=== PATIENT | female | born 1965 | race Caucasian/White ===

== ENCOUNTER 2019-01-14 10:02 | Inpatient (IN) | payer BC ==
[~2019-01-14] VITALS: Ht 157.4 cm; Wt 65.4 kg
[2019-01-14 10:05] VITALS: BP 172/68
[2019-01-14 10:34] LABS: BASO # 0.1 10*3/uL (0.0-0.1); BASO % 0.5 % (0.0-1.0); EOS # 0.1 10*3/uL (0.0-0.4); EOS % 1.1 % (1.0-4.0); HEMATOCRIT 42.1 % (37.0-47.0); HEMOGLOBIN 13.3 g/dl (12.0-16.0); LYMPH # 3.4 10*3/uL (1.3-4.4); MEAN CELL VOLUME 99.5 fl (81.0-99.0); MEAN CORPUSCULAR HGB 31.4 pg (27.0-31.0); MEAN CORPUSCULAR HGB CONC 31.6 g/dl (33.0-37.0); MEAN PLATELET VOLUME 9.8 fl (9.6-12.3); MONO # 1.2 10*3/uL (0.1-1.0); MONO % 9.4 % (3.0-9.0); NEUT # 7.3 10*3/uL (2.3-7.9); NEUT % 60.2 % (47.0-73.0); PLATELET COUNT AUTOMATED 225 10*3/uL (130-400); RED BLOOD COUNT 4.23 10*6/uL (4.10-5.10); RED CELL DISTRI WIDTH 13.5 % (0-14.5); WHITE BLOOD COUNT 12.2 10*3/uL (4.8-10.8)
[2019-01-14 10:48] LABS: ALBUMIN 3.8 gm/dl (3.1-4.5); ALKALINE PHOSPHATASE 71 U/L (45-117); BUN 17 mg/dl (7-24); CHLORIDE 107 mmol/L (98-107); CREATININE 0.79 mg/dL (0.55-1.02); LIPASE 213 U/L (73-393); POTASSIUM 4.3 mmol/L (3.5-5.1); SGOT/AST 18 IU/L (3-35); SGPT/ALT 28 U/L (12-78); SODIUM 140 mmol/L (136-145); TOTAL PROTEIN 7.9 gm/dL (6.4-8.2)
[2019-01-14 10:49] LABS: TROPONIN I < 0.015 ng/ml (<0.045)
[2019-01-14 11:00] VITALS: BP 163/80
[2019-01-14 11:26] LABS: ACT PARTIAL THROMBO TIME 25.4 SECONDS (20.0-32.1); INTERNATIONAL NORM RATIO 0.9 (2.0-3.5)
[2019-01-14 11:43] VITALS: BP 130/82
[2019-01-14 11:45] VITALS: BP 116/66
--- NOTE | 2019-01-14 11:53 | NUR ---
Time: 1144 A 53 year old FEMALE admitted to 5E under services of SUSAN AMADO DO, Pt. arrived via bed from ER. Chief complaint: COPD EXACERBATION. TOO GAYLE
--- NOTE | 2019-01-14 12:17 | NUR ---
INFORMED DR. BULL PATIENT WAS ON THE FLOOR AND ADMISSION WAS IN.
--- NOTE | 2019-01-14 14:38 | NUR ---
SPOKE WITH DR MORENO AND INFORMED HIM OF NEW CONSULT. STATED TO COLLECT SPUTUM CULTURE AND THEN GIVE THE PATIENT ANOTHER COLLECTION CUP TO MEASURE THE AMOUNT OF HEMOPTYSIS. AND TO CALL DR BULL TO ORDER A CTA
[2019-01-14 16:00] VITALS: BP 119/76
--- NOTE | 2019-01-14 16:56 | NUR ---
PT TO CT VIA WHEELCHAIR
--- NOTE | 2019-01-14 17:11 | NUR ---
PT BACK FROM CT. VOICES NO CONCERNS AT THIS TIME. RESTING IN BED. CALL LIGHT WITHIN REACH
--- NOTE | 2019-01-14 19:51 | NUR ---
24 HR chart check completed.
[2019-01-14 20:00] VITALS: BP 125/59
--- NOTE | 2019-01-14 20:30 | NUR ---
SITTING WITH HOB ELEVATED. RESPIRATIONS EASY. LUNGS DIMINISHED WITH POOR AIR MOVEMENT. PULSE OX 94% 2L. CUP PRESENT AT BEDSIDE WITH BLOODY SPUTUM. CALL LIGHT WITHIN REACH. NO VOICED COMPLAINTS
--- NOTE | 2019-01-14 22:45 | NUR ---
DR ZAMORA PRESENT ON FLOOR. INFORMED OF PATIENT'S C/O DIFFICULTY BREATHING.
[2019-01-14 23:10] LABS: ABG BASE EXCESS 0.3 mmol/L (-2.0-2.0); ABG HCO3 26.3 mmol/l (22-26); ABG O2 SATURATION 93.4 % (95-97); ARTERIAL BLOOD GAS PCO2 49.6 mmHg (35-45); ARTERIAL BLOOD GAS PH 7.341 (7.35-7.45); ARTERIAL BLOOD GAS PO2 71.8 mmHg (80-90)
[2019-01-15] VITALS: BP 120/78
--- NOTE | 2019-01-15 | NUR ---
SLEEPING. NO ACUTE DISTRESS NOTED. RESPIRATIONS EASY. PULSE OX 95% 3L. CALL LIGHT WITHIN REACH.
--- NOTE | 2019-01-15 00:25 | NUR ---
DR ZAMORA PRESENT ON FLOOR. ABG'S REVIEWED. ORDERS RECEIVED TO INCREASE O2 TO 4L
--- NOTE | 2019-01-15 01:00 | NUR ---
SLEEPING. NO ACUTE DISTRESS NOTED. RESPIRATIONS EASY. O2 IN USE AT 4L. CALL LIGHT WITHIN REACH
--- NOTE | 2019-01-15 06:00 | NUR ---
SLEPT THROUGHOUT NIGHT WITH NO ACUTE DISTRESS NOTED. RESPIRATIONS EASY. O2 IN USE. CUP PRESENT AT BEDSIDE WITH SPUTUM SPECIMEN PER DR MORENO REQUEST. CALL LIGHT WITHIN REACH. NO VOICED COMPLAINTS THIS SHIFT
[2019-01-15 06:36] LABS: BASO % 0.1 % (0.0-1.0); HEMATOCRIT 39.8 % (37.0-47.0); HEMOGLOBIN 12.7 g/dl (12.0-16.0); LYMPH # 1.4 10*3/uL (1.3-4.4); LYMPH % 11.7 % (27.0-41.0); MEAN CELL VOLUME 98.8 fl (81.0-99.0); MEAN CORPUSCULAR HGB 31.5 pg (27.0-31.0); MEAN CORPUSCULAR HGB CONC 31.9 g/dl (33.0-37.0); MEAN PLATELET VOLUME 10.5 fl (9.6-12.3); MONO # 0.4 10*3/uL (0.1-1.0); MONO % 3.4 % (3.0-9.0); NEUT % 83.8 % (47.0-73.0); PLATELET COUNT AUTOMATED 240 10*3/uL (130-400); RED BLOOD COUNT 4.03 10*6/uL (4.10-5.10); RED CELL DISTRI WIDTH 13.3 % (0-14.5); WHITE BLOOD COUNT 11.9 10*3/uL (4.8-10.8)
[2019-01-15 06:51] LABS: BUN 17 mg/dl (7-24); CHLORIDE 106 mmol/L (98-107); CHOLESTEROL 204 mg/dL (<200); CREATININE 0.65 mg/dL (0.55-1.02); HDL CHOLESTEROL 78 mg/dl (40-60); LDL CHOLESTEROL 118 mg/dL (9-159); PHOSPHOROUS 2.8 mg/dL (2.5-4.9); POTASSIUM 4.4 mmol/L (3.5-5.1); SODIUM 142 mmol/L (136-145); TRIGLYCERIDES 42 mg/dl (<150); VLDL CHOLESTEROL 8 mg/dL (6-40)
[2019-01-15 06:58] LABS: THYROID STIM HORMONE (HS) 0.231 uIU/ml (0.358-4.75)
[2019-01-15 08:00] VITALS: BP 127/51
--- NOTE | 2019-01-15 09:00 | NUR ---
Estimator [employer] Boxes in to talk to patient. Patient states lives at home with . There are few steps in the home. Physician: none [facility]acy[facility] Home health services: none Patient's level of ADLs: INDEPENDENT Patient has working utilities: all working DME: none Follow-up physician's appointment after d/c: will be made by hospitalist nurse director with doctor of patient's choice Does patient want to access PORTAL?: no Discharge plan discussed with patient, present, she lives at home with her , she is independent in adls and ambulation, she states she will be returning home when medically stable and denies any home needs. BERNARDA RODRIGUEZ
--- NOTE | 2019-01-15 09:00 | NUR ---
PT RESTING IN BED WITH VISITOR AT HER SIDE. RESP-EASY AND REGULAR. OXYGEN IN USE. NO C/O AT THIS TIME. CALL LIGHT IN REACH. SEE SHIFT ASSESSMENT.
--- NOTE | 2019-01-15 10:49 | NUR ---
PT. HAVING ECHO, ABG NOT DONE AT THIS TIME.
[2019-01-15 11:20] LABS: ABG BASE EXCESS 3.8 mmol/L (-2.0-2.0); ABG HCO3 28.5 mmol/l (22-26); ABG O2 SATURATION 94.2 % (95-97); ARTERIAL BLOOD GAS PCO2 43.7 mmHg (35-45); ARTERIAL BLOOD GAS PH 7.426 (7.35-7.45); ARTERIAL BLOOD GAS PO2 62.9 mmHg (80-90)
[2019-01-15 12:00] VITALS: BP 120/58
[2019-01-15 16:00] VITALS: BP 123/64
--- NOTE | 2019-01-15 16:10 | NUR ---
PT TOLERATING IV ANTIBIOTICS WITH NO PROBLEM. NO C/O AT THIS TIME. CALL LIGHT IN REACH. SEE SHIFT ASSESSMENT.
--- NOTE | 2019-01-15 18:30 | NUR ---
RESTING IN BED. RESP-EASY AND REGULAR. OXYGEN IN USE. CALL LIGHT IN REACH. VISITOR AT BEDSIDE.
--- NOTE | 2019-01-15 19:32 | NUR ---
24 HR chart check completed.
[2019-01-15 20:00] VITALS: BP 118/44
[2019-01-16] VITALS: BP 126/54
[2019-01-16 07:58] VITALS: BP 120/80
--- NOTE | 2019-01-16 08:00 | NUR ---
Patient resting quietly with no c/o discomfort. Respirations easy and regular. Vital signs stable. No overt distress. JARROD JOSEPH
--- NOTE | 2019-01-16 09:00 | NUR ---
case management visits with patient, she will be returning home when medically stable and denies any home needs
[2019-01-16 11:56] VITALS: BP 120/74
--- NOTE | 2019-01-16 12:00 | NUR ---
Patient resting quietly with no c/o discomfort. Respirations easy and regular. Vital signs stable. No overt distress. BRONCHOSCOPY EXPLAINED TO JARROD GUALLPA
[2019-01-16 16:00] VITALS: BP 131/61
--- NOTE | 2019-01-16 16:00 | NUR ---
Patient resting quietly with no c/o discomfort. Respirations easy and regular. Vital signs stable. No overt distress. JARROD JOSEPH
[2019-01-16 20:00] VITALS: BP 137/65
--- NOTE | 2019-01-16 21:27 | NUR ---
RESTORIL GIVEN FOR INABILITY TO SLEEP. SEE EMAR. REINFORCED USE OF CALL LIGHT.
[2019-01-17] VITALS (9 sets, daily range): BP systolic 106–148; BP diastolic 48–99
--- NOTE | 2019-01-17 01:55 | NUR ---
PATIENT RESTING QUIETLY. NO FURTHER C/O VOICED.
--- NOTE | 2019-01-17 07:30 | NUR ---
PT LEAVING FOR SURGERY.
--- NOTE | 2019-01-17 08:40 | NUR ---
24 HR chart check completed.
--- NOTE | 2019-01-17 09:00 | NUR ---
case management visits with patient, she states she will return home when medically stable and denies any home needs
--- NOTE | 2019-01-17 12:00 | NUR ---
Patient resting quietly with no c/o discomfort. Respirations easy and regular. Vital signs stable. No overt distress. UPDATED ON POC/TESTS. JARROD JOSEPH
--- NOTE | 2019-01-17 16:00 | NUR ---
Patient resting quietly with no c/o discomfort. Respirations easy and regular. Vital signs stable. No overt distress. JARROD JOSEPH
[2019-01-18] VITALS: BP 115/53
[2019-01-18 08:00] VITALS: BP 129/65
--- NOTE | 2019-01-18 08:37 | NUR ---
Questioned pt regarding refusal of lovenox and nicoderm. Pt states she has been getting up and walking and feels she does not need lovenox. States that she feels nicoderm patch would make her shakey. Explained what lovenox was for and pt states she is aware but does not want it.
--- NOTE | 2019-01-18 09:00 | NUR ---
case management visits with patient, she states she will be discharged to home tomorrow if medically stable, she denies any home needs
[2019-01-18 12:00] VITALS: BP 126/62
--- NOTE | 2019-01-18 13:50 | NUR ---
Hep Lock discontinued to RAN. Site is difficult to flush. Pressure applied. Sterile dressing applied. IV started left antecubital with #20 angiocath after 1 attempts. The IV site was prepped with Chloraprep. Heparin lock attached. Sterile dressing applied. Patient tolerated precedure well. Procedure performed according to [facility] policy & procedure.
[2019-01-18 16:00] VITALS: BP 133/72
[2019-01-18 16:07] LABS: ACID FAST SPEC PROCESSING Concentration (.)
[2019-01-18 20:00] VITALS: BP 123/57
[2019-01-19] VITALS: BP 130/56
--- NOTE | 2019-01-19 03:47 | NUR ---
24 HR chart check completed.
--- NOTE | 2019-01-19 04:00 | NUR ---
Patient resting quietly with no c/o discomfort. Respirations easy and regular. Vital signs stable. No overt distress. JEROME RIVERA
[2019-01-19 06:26] LABS: BASO % 0.2 % (0.0-1.0); HEMATOCRIT 40.8 % (37.0-47.0); HEMOGLOBIN 13.2 g/dl (12.0-16.0); LYMPH # 1.3 10*3/uL (1.3-4.4); LYMPH % 10.4 % (27.0-41.0); MEAN CELL VOLUME 96.5 fl (81.0-99.0); MEAN CORPUSCULAR HGB 31.2 pg (27.0-31.0); MEAN CORPUSCULAR HGB CONC 32.4 g/dl (33.0-37.0); MEAN PLATELET VOLUME 10.5 fl (9.6-12.3); MONO # 0.4 10*3/uL (0.1-1.0); NEUT # 10.9 10*3/uL (2.3-7.9); NEUT % 84.5 % (47.0-73.0); PLATELET COUNT AUTOMATED 249 10*3/uL (130-400); RED BLOOD COUNT 4.23 10*6/uL (4.10-5.10); RED CELL DISTRI WIDTH 13.3 % (0-14.5); WHITE BLOOD COUNT 12.9 10*3/uL (4.8-10.8)
[2019-01-19 06:48] LABS: ALBUMIN 3.4 gm/dl (3.1-4.5); BUN 21 mg/dl (7-24); CHLORIDE 104 mmol/L (98-107); CREATININE 0.69 mg/dL (0.55-1.02); POTASSIUM 4.2 mmol/L (3.5-5.1); SGOT/AST 10 IU/L (3-35); SGPT/ALT 28 U/L (12-78); SODIUM 140 mmol/L (136-145)
[2019-01-19 06:49] LABS: ALKALINE PHOSPHATASE 56 U/L (45-117); TOTAL PROTEIN 6.7 gm/dL (6.4-8.2)
[2019-01-19 08:00] VITALS: BP 120/71
--- NOTE | 2019-01-19 09:11 | NUR ---
Pt again refused lovenox and nicoderm for the same reasons as yesterday morning. See prior note.
--- NOTE | 2019-01-19 11:35 | NUR ---
Spoke with respiratory regarding home O2 assessment. States pt needs 3l with ambulation, states here pox dropped on 2L. Notified Dr. Ortiz of need for script for home O2 for respiratory to set up.
[2019-01-19 12:00] VITALS: BP 137/66
--- NOTE | 2019-01-19 12:13 | NUR ---
PT ASSESSED FOR HOME O2. SPO2 AT REST ON RA = 92% YR=[id number] SPO2 AMBULATING ON RA = 82% AMBULATING ON 2 L NC = 88% AMBULATING ON 3 L NC = 91-92& PT REQUIRES 3 L NC WITH AMBULATION.
--- NOTE | 2019-01-19 12:51 | NUR ---
Spoke with Dr. Torres. States pt may go home from his standpoint. Requires home o2. Notified Dr. Ortiz.
--- NOTE | 2019-01-19 12:53 | NUR ---
Notified respiratory that Dr. Torres stated to me that pt could be dc from his standpoint.
--- NOTE | 2019-01-19 13:00 | NUR ---
Mishel from respiratory called regarding need for order for O2, so they can fax to company and get process started for pt home o2. I spoke with Dr. Ortiz regarding this.
[2019-01-19] MEDS ORDERED: MUCINEX ER600 MG PO (13:39)
[2019-01-19] MEDS ORDERED: AVPAK AZITHROM250 M1 PO (13:39)
[2019-01-19] MEDS ORDERED: PREDNISONE10 MG PO (13:39)
--- NOTE | 2019-01-19 14:25 | NUR ---
Discharge instructions reviewed with patient. Patient receptive and verbalizes understanding. Follow-up care arranged. Written instructions given to patient. Iv site removed after zithromax completed. Awaiting oxygen delivery, notified pt she could not leave until delivered. Verbalized understanding.
--- NOTE | 2019-01-19 15:50 | NUR ---
Oxygen was delivered and pt left via ambulatory. Notified by respiratory therapist that pt left, she states she was there when O2 was delivered.
[2019-02-20 21:06] LABS: M AVIUM COMPLEX Positive (.); M GORDONAE Not Indicated (.); M KANSASII Not Indicated (.); M TUBERCULOSIS COMPLEX Negative (.)
[2019-02-22 14:59] LABS: ACID FAST CULTURE Positive (.)
== END 2019-01-19 15:50 | disposition home or self-care (01) | DRG 189 ==
LOC: ED 10:02 → 5E 11:16 → EDHOLD 11:16 → 5E 11:32
PROVIDERS: Internal Medicine Critical Care Medicine; Nurse Practitioner Family; Student in an Organized Health Care Education/Training Program; ADMIT Internal Medicine
PROC: 0BC18ZZ Extirpation of Matter from Trachea, Via Natural or Artificial Opening Endoscopic (ICD-10-PCS; principal; 2019-01-17)
PROC: 0BC48ZZ Extirpation of Matter from Right Upper Lobe Bronchus, Via Natural or Artificial Opening Endoscopic (ICD-10-PCS; principal; 2019-01-17)
PROC: 0BC38ZZ Extirpation of Matter from Right Main Bronchus, Via Natural or Artificial Opening Endoscopic (ICD-10-PCS; principal; 2019-01-17)
PROC: 0BC68ZZ Extirpation of Matter from Right Lower Lobe Bronchus, Via Natural or Artificial Opening Endoscopic (ICD-10-PCS; principal; 2019-01-17)
PROC: 0BC58ZZ Extirpation of Matter from Right Middle Lobe Bronchus, Via Natural or Artificial Opening Endoscopic (ICD-10-PCS; principal; 2019-01-17)
PROC: 0BCB8ZZ Extirpation of Matter from Left Lower Lobe Bronchus, Via Natural or Artificial Opening Endoscopic (ICD-10-PCS; principal; 2019-01-17)
PROC: 0BC88ZZ Extirpation of Matter from Left Upper Lobe Bronchus, Via Natural or Artificial Opening Endoscopic (ICD-10-PCS; principal; 2019-01-17)
PROC: 0BC78ZZ Extirpation of Matter from Left Main Bronchus, Via Natural or Artificial Opening Endoscopic (ICD-10-PCS; principal; 2019-01-17)
PROC: 0BC98ZZ Extirpation of Matter from Lingula Bronchus, Via Natural or Artificial Opening Endoscopic (ICD-10-PCS; principal; 2019-01-17)
DX: J96.01 Acute respiratory failure with hypoxia (principal); R04.2 Hemoptysis; E87.2 Acidosis; J43.9 Emphysema, unspecified; J96.02 Acute respiratory failure with hypercapnia; J34.89 Other specified disorders of nose and nasal sinuses; D72.821 Monocytosis (symptomatic); J20.9 Acute bronchitis, unspecified; F17.210 Nicotine dependence, cigarettes, uncomplicated; Z71.6 Tobacco abuse counseling; Z91.040 Latex allergy status; Z87.442 Personal history of urinary calculi; Z98.51 Tubal ligation status; Z82.5 Family history of asthma and other chronic lower respiratory diseases

== ENCOUNTER → 2019-01-24 | Outpatient (CLI) | payer BC ==
[~2019-01-24] MED LIST: AVPAK AZITHROM250 M1 PO; MUCINEX ER600 MG PO; PREDNISONE10 MG PO
[2019-01-24 16:43] LABS: BASO % 0.1 % (0.0-1.0); EOS # 0.1 10*3/uL (0.0-0.4); EOS % 0.5 % (1.0-4.0); HEMATOCRIT 41.3 % (37.0-47.0); HEMOGLOBIN 13.3 g/dl (12.0-16.0); LYMPH # 2.4 10*3/uL (1.3-4.4); LYMPH % 15.9 % (27.0-41.0); MEAN CELL VOLUME 98.8 fl (81.0-99.0); MEAN CORPUSCULAR HGB 31.8 pg (27.0-31.0); MEAN CORPUSCULAR HGB CONC 32.2 g/dl (33.0-37.0); MEAN PLATELET VOLUME 9.8 fl (9.6-12.3); MONO # 0.8 10*3/uL (0.1-1.0); MONO % 5.4 % (3.0-9.0); NEUT # 11.8 10*3/uL (2.3-7.9); NEUT % 77.4 % (47.0-73.0); PLATELET COUNT AUTOMATED 222 10*3/uL (130-400); RED BLOOD COUNT 4.18 10*6/uL (4.10-5.10); RED CELL DISTRI WIDTH 13.2 % (0-14.5); WHITE BLOOD COUNT 15.3 10*3/uL (4.8-10.8)
[2019-01-24 18:37] LABS: VITAMIN D, 25-HYDROXY 25.3 ng/mL (30-100)
== END | disposition home or self-care (01) ==
LOC: RESCLI 00:46
PROVIDERS: Internal Medicine
DX: Z09 Encounter for follow-up examination after completed treatment for conditions other than malignant neoplasm (principal); Z12.11 Encounter for screening for malignant neoplasm of colon; J44.9 Chronic obstructive pulmonary disease, unspecified; R10.11 Right upper quadrant pain; Z71.6 Tobacco abuse counseling; Z76.89 Persons encountering health services in other specified circumstances; Z79.899 Other long term (current) drug therapy; Z88.8 Allergy status to other drugs, medicaments and biological substances

== ENCOUNTER → 2022-01-12 | Outpatient (CLI) | payer BC ==
[2022-01-12 11:02] LABS: BUN 14 mg/dl (7-24); CREATININE 0.69 mg/dL (0.55-1.02)
== END ==
LOC: LAB 10:35 → CT 11:00
PROVIDERS: ATTEND Family Medicine
DX: N20.2 Calculus of kidney with calculus of ureter (principal); N28.1 Cyst of kidney, acquired; K57.30 Diverticulosis of large intestine without perforation or abscess without bleeding; N13.30 Unspecified hydronephrosis

== ENCOUNTER 2023-08-31 08:52 | Emergency (ER) | payer BC ==
[~2023-08-31] VITALS: Ht 165.1 cm; Wt 72.6 kg
[2023-08-31] MEDS ORDERED: Albuterol Sulf/Ipratropium 3 ML VIAL NEB ONE (09:40)
[2023-08-31 09:59] LABS: BASO # 0.1 10*3/uL (0.0-0.1); BASO % 0.9 % (0.0-1.0); EOS # 0.2 10*3/uL (0.0-0.4); EOS % 2.2 % (1.0-4.0); HEMATOCRIT 39.6 % (37.0-47.0); LYMPH # 2.9 10*3/uL (1.3-4.4); LYMPH % 31.3 % (27.0-41.0); MEAN CORPUSCULAR HGB 31.2 pg (27.0-31.0); MEAN CORPUSCULAR HGB CONC 31.8 g/dl (33.0-37.0); MEAN PLATELET VOLUME 9.7 fl (9.6-12.3); MONO # 0.9 10*3/uL (0.1-1.0); MONO % 9.9 % (3.0-9.0); NEUT # 5.1 10*3/uL (2.3-7.9); NEUT % 55.4 % (47.0-73.0); PLATELET COUNT AUTOMATED 281 10*3/uL (130-400); RED BLOOD COUNT 4.04 10*6/uL (4.10-5.10); RED CELL DISTRI WIDTH 13.4 % (0-14.5); WHITE BLOOD COUNT 9.3 10*3/uL (4.8-10.8)
[2023-08-31] MEDS ORDERED: methylPREDNISolone sod succ 40 MG VIAL IV ONE (10:10)
[2023-08-31] MEDS ORDERED: oxygen ×2 (10:12→10:17)
[2023-08-31] MEDS ORDERED: predniSONE 20 MG TAB PO ONE (10:15)
[2023-08-31 10:18] LABS: BUN 16 mg/dl (9-23); CHLORIDE 106 mmol/L (98-107); POTASSIUM 4.1 mmol/L (3.4-5.1)
[2023-08-31] MEDS ORDERED: PREDNISONE50 MG PO (10:22)
== END 2023-08-31 11:29 | disposition home or self-care (01) ==
LOC: ED 08:52
PROVIDERS: Emergency Medicine
DX: J44.1 Chronic obstructive pulmonary disease with (acute) exacerbation (principal); F17.200 Nicotine dependence, unspecified, uncomplicated; Z88.2 Allergy status to sulfonamides; Z98.51 Tubal ligation status; Z98.890 Other specified postprocedural states

== ENCOUNTER → 2024-01-10 | Outpatient (CLI) | payer BC ==
[~2024-01-10] MED LIST changes: +PREDNISONE50 MG PO; +oxygen
== END | disposition home or self-care (01) ==
LOC: CT 09:47
PROVIDERS: ATTEND Internal Medicine Critical Care Medicine
DX: J44.9 Chronic obstructive pulmonary disease, unspecified (principal); Z87.891 Personal history of nicotine dependence

== ENCOUNTER → 2024-06-19 | Outpatient (CLI) | payer BC ==
[2024-06-19 12:17] LABS: BASO % 0.3 % (0.0-1.0); HEMATOCRIT 39.9 % (37.0-47.0); MEAN CELL VOLUME 91.1 fl (81.0-99.0); MEAN CORPUSCULAR HGB 30.6 pg (27.0-31.0); MEAN CORPUSCULAR HGB CONC 33.6 g/dl (33.0-37.0); MEAN PLATELET VOLUME 9.7 fl (9.6-12.3); MONO # 0.2 10*3/uL (0.1-1.0); MONO % 1.6 % (3.0-9.0); NEUT % 85.8 % (47.0-73.0); PLATELET COUNT AUTOMATED 254 10*3/uL (130-400); RED BLOOD COUNT 4.38 10*6/uL (4.10-5.10); RED CELL DISTRI WIDTH 13.2 % (0-14.5); RETICULOCYTE % 1.18 % (0.50-2.50); WHITE BLOOD COUNT 10.5 10*3/uL (4.8-10.8)
[2024-06-19 12:18] LABS: BILIRUBIN Negative (Negative); BLOOD Negative (Negative); CLARITY Clear (Clear); COLOR Yellow (Yellow); GLUCOSE Negative (Negative); KETONE Negative (Negative); LEUKO ESTERASE Negative (Negative); NITRITE Negative (Negative); PH 6.5 (4.5-8.0); SPECIFIC GRAVITY <= 1.005 (1.001-1.030); UROBILINOGEN 0.2 E.U./dl (0.0-1.0)
[2024-06-19 12:29] LABS: RBC 0-2 rbc/hpf (0-2)
[2024-06-19 12:40] LABS: ALKALINE PHOSPHATASE 79 U/L (46-116); BUN 18 mg/dl (9-23); CHLORIDE 104 mmol/L (98-107); CHOLESTEROL 294 mg/dL (<200); GAMMA GLUTAMYL TRANSPEPTIDASE 21 U/L (0-73); LDL CHOLESTEROL 192 mg/dL (9-159); POTASSIUM 4.6 mmol/L (3.4-5.1); SGPT/ALT 22 U/L (5-49); TOTAL PROTEIN 7.9 gm/dL (6.0-8.0); TRIGLYCERIDES 67 mg/dl (<150)
[2024-06-19 12:41] LABS: VITAMIN D, 25-HYDROXY 36.7 ng/mL (30-100)
== END | disposition home or self-care (01) ==
LOC: LAB 11:42
PROVIDERS: ATTEND Family Medicine
DX: J98.11 Atelectasis (principal); R79.89 Other specified abnormal findings of blood chemistry; R53.83 Other fatigue; E55.9 Vitamin D deficiency, unspecified; R06.02 Shortness of breath; J44.9 Chronic obstructive pulmonary disease, unspecified

== ENCOUNTER → 2024-07-22 | Outpatient (CLI) | payer BC ==
[2024-07-22 12:39] LABS: BASO # 0.1 10*3/uL (0.0-0.1); BASO % 0.7 % (0.0-1.0); EOS # 0.3 10*3/uL (0.0-0.4); EOS % 3.5 % (1.0-4.0); HEMATOCRIT 40.4 % (37.0-47.0); MEAN CELL VOLUME 94.8 fl (81.0-99.0); MEAN CORPUSCULAR HGB 30.8 pg (27.0-31.0); MEAN CORPUSCULAR HGB CONC 32.4 g/dl (33.0-37.0); MEAN PLATELET VOLUME 9.2 fl (9.6-12.3); MONO # 0.8 10*3/uL (0.1-1.0); MONO % 9.9 % (3.0-9.0); NEUT % 62.4 % (47.0-73.0); PLATELET COUNT AUTOMATED 277 10*3/uL (130-400); RED BLOOD COUNT 4.26 10*6/uL (4.10-5.10); RED CELL DISTRI WIDTH 13.2 % (0-14.5); WHITE BLOOD COUNT 8.1 10*3/uL (4.8-10.8)
== END | disposition home or self-care (01) ==
LOC: LAB 12:25
PROVIDERS: ATTEND Internal Medicine Critical Care Medicine
DX: J44.9 Chronic obstructive pulmonary disease, unspecified (principal); J45.50 Severe persistent asthma, uncomplicated; Z87.891 Personal history of nicotine dependence; Z68.28 Body mass index [BMI] 28.0-28.9, adult

== ENCOUNTER → 2025-03-11 | Outpatient (CLI) | payer BC ==
[~2025-03-11] MED LIST changes: +ALBUTEROL0.63 MG/3 INH; +ATORVASTATIN CA40 M1 PO; +BUDESONIDE-FO10.2 G1 INH; +BUSPAR5 MG PO; +DOXYCYCLINE HY100 M3 PO; +ROFLUMILAST500 MCG PO; +SPIRIVA RESPIMAT4 GM INH; +VENTOLIN 02.5 MG/3 M NEB
[2025-03-11 11:19] LABS: BASO # 0.1 10*3/uL (0.0-0.1); BASO % 0.4 % (0.0-1.0); EOS # 0.2 10*3/uL (0.0-0.4); EOS % 1.7 % (1.0-4.0); MEAN CELL VOLUME 93.5 fl (81.0-99.0); MEAN CORPUSCULAR HGB 30.6 pg (27.0-31.0); MEAN PLATELET VOLUME 9.3 fl (9.6-12.3); MONO # 1.1 10*3/uL (0.1-1.0); MONO % 9.6 % (3.0-9.0); NEUT # 7.9 10*3/uL (2.3-7.9); NEUT % 70.7 % (47.0-73.0); NUCLEATED RED BLOOD CELL 0.0 % (0.0-0.0); NUCLEATED RED BLOOD CELL 0.0 10*3/uL (0.0-0.0); PLATELET COUNT AUTOMATED 334 10*3/uL (130-400); RED CELL DISTRI WIDTH 13.6 % (0-14.5)
[2025-03-11 11:52] LABS: BUN 14 mg/dl (9-23); SGPT/ALT 19 U/L (5-49)
== END | disposition home or self-care (01) ==
LOC: LAB 10:49
PROVIDERS: ATTEND Internal Medicine
DX: J44.1 Chronic obstructive pulmonary disease with (acute) exacerbation (principal); E78.5 Hyperlipidemia, unspecified; R53.1 Weakness